=== PATIENT | female | born 1980 | race Caucasian/White ===

== ENCOUNTER 2019-06-11 11:45 | Emergency (ER) | payer OTHER ==
[2019-06-11] MEDS ORDERED: Prochlorperazine 10 MG/2 ML VIAL ONE (12:29)
[2019-06-11] MEDS ORDERED: Ketorolac Tromethamine 60 MG/2 ML VIAL ONE (12:29)
[2019-06-11] MEDS ORDERED: diphenhydrAMINE 50 MG/ML VIAL ONE (12:29)
== END 2019-06-11 13:03 | disposition home or self-care (01) ==
LOC: MADERS 11:45
DX: G43.909 Migraine, unspecified, not intractable, without status migrainosus (principal); F41.9 Anxiety disorder, unspecified; F31.9 Bipolar disorder, unspecified; F17.210 Nicotine dependence, cigarettes, uncomplicated; Z79.899 Other long term (current) drug therapy
CPT/HCPCS: 96372; 99283; J0780; J1200; J1885